=== PATIENT | male | born 1970 | race Caucasian/White ===

== ENCOUNTER 2022-04-15 19:26 | Emergency (ER) | payer SELFPAY ==
[~2022-04-15] VITALS: Ht 177.8 cm; Wt 96.4 kg
[2022-04-15 21:33] LABS: BASO% 0.2 % (0-3); EOS% 0.8 % (0-8); HEMATOCRIT 38.2 % (39.0-50.0); HEMOGLOBIN 13.5 g/dl (14.0-18.0); IMMATURE GRANULOCYTES 0.4 % (0.0-5.0); LYMPH% 14.3 % (15-41); MEAN CORPUSCULAR HGB 31.5 pG CALC (26.0-32.0); MEAN CORPUSCULAR HGB CONC 35.3 g/dL CAL (32.0-36.0); MONO% 5.2 % (2-13); NEUT# 8.72 thou/uL (1.82-7.42); NEUT% 79.1 % (42-76); RED BLOOD COUNT 4.29 mill/uL (4.70-6.10); RED CELL DISTRI WIDTH 12.5 % (11.5-15.5)
[2022-04-15 21:43] LABS: ALBUMIN 4.8 g/dL (3.2-5.0); ALKALINE PHOSPHATASE 75 u/l (38-126); AMYLASE 58 u/l (30-110); ANION GAP 17 (6-22 (CALC)); BILIRUBIN, TOTAL 0.5 mg/dL (0.0-1.4); BUN 23 mg/dL (9-20); BUN/CREATININE RATIO 18 (12-20 (CALC)); CARBON DIOXIDE 24 mmol/l (22-30); CHLORIDE 106 mmol/l (95-108); CREATININE 1.3 mg/dL (0.7-1.3); GFR FOR AFR.AMER. > 60 ML/MIN (>=60 (CALC)); GFR OTHER RACES 58 ML/MIN (>=60 (CALC)); POTASSIUM 4.1 mmol/l (3.5-5.1); SGOT/AST 47 u/l (17-59); SODIUM 143 mmol/l (137-146); TOTAL PROTEIN 7.8 g/dL (6.3-8.2)
[2022-04-15 23:51] LABS: URINE BILIRUBIN - DIPSTICK NEGATIVE (NEGATIVE); URINE BLOOD DIPSTICK LARGE (NEGATIVE); URINE COLOR YELLOW; URINE GLUCOSE - DIPSTICK NEGATIVE (NEGATIVE); URINE KETONE 15 mg/dL (NEGATIVE); URINE LEUK ESTERASE NEGATIVE (NEGATIVE); URINE PH 5.5 (4.5-8.0); URINE PROTEIN - DIPSTICK NEGATIVE (NEG-TRACE); URINE SPECIFIC GRAVITY >=1.030; URINE UROBILINOGEN - DIPSTICK 0.2 E.U./dL (0.2)
[2022-04-15 23:52] LABS: URINE NITRITE - DIPSTICK NEGATIVE (Negative)
[2022-04-16 00:07] LABS: URINE SQUAMOUS EPITHELIAL CELL FEW EPI/hpf (0-FEW); URINE WBC 0-2 WBC/hpf (0-5)
[2022-04-16] MEDS ORDERED: TAMSULOSIN0.4 MG PO (01:08)
[2022-04-16] MEDS ORDERED: TYLENOL # 31 TA1 PO (01:08)
[2022-04-16 01:12] VITALS: BP 140/80
== END 2022-04-16 01:28 | disposition home or self-care (01) | DRG 694 ==
LOC: ED 19:26
PROVIDERS: Family Medicine
DX: N20.1 Calculus of ureter (principal); N23 Unspecified renal colic
CPT/HCPCS: Q9967